=== PATIENT | female | born 1930 | race Two or more races ===

== ENCOUNTER 2017-12-12 15:40 | Emergency (ER) | payer MEDICARE, OTHER ==
[2016-01-21 15:12] VITALS: BP 126/67
[~2017-12-12] VITALS: Ht 157.5 cm; Wt 70.8 kg
[~2017-12-12 15:40] MED LIST: CELE100C PO; CELE200C PO; EYE; OMEP20CA9 PO; TRAM50TA PO
--- NOTE | 2017-12-12 16:48 | PHYS DOC ---
Past Medical History Past Medical History: Arthritis Additional Past Medical Histor: SCOLIOSIS Past Surgical History: Other Additional Past Surgical Histo: BILATERAL CATARACT Smoking: Cigarettes (The patient is a nonsmoker.) Alcohol Use: None Drug Use: None Adult General Chief Complaint Chief Complaint: LOWER EXT PAIN HPI HPI Patient is an 87-year-old female who presents to the emergency department for evaluation. She states that for the past month or so, she has had some lower extremity discomfort, primarily in the her legs, left greater than right. Over the past few weeks she has developed some mild edema to her legs, possibly left greater than right. She denies any other pain. She denies any shortness of breath, chest pain, pleuritic pain, numbness, or weakness. She denies any lower abdominal or back pain. She has not had a definite injuries. She is able to ambulate without significant difficulty. She has had a history of pain from arthritis and had been on tramadol with her primary care provider had taken at a rate. She has been using some Motrin as needed for pain. Palpation of the affected areas worsen her pain. There are no alleviating factors to her symptoms. Review of Systems Review of Systems Constitutional: Denies fever or chills [] Eyes: Denies change in visual acuity, redness, or eye pain [] HENT: Denies nasal congestion or sore throat [] Respiratory: Denies cough or shortness of breath [] Cardiovascular: The patient denies any shortness of breath, chest pain, palpitations, or orthopnea [] GI: Denies abdominal pain, nausea, vomiting, bloody stools or diarrhea [] : Denies dysuria or hematuria [] Musculoskeletal: Denies back pain or joint pain [] Integument: Denies rash or skin lesions [] Neurologic: Denies headache, focal weakness or sensory changes [] Endocrine: Denies polyuria or polydipsia [] All other systems were reviewed and found to be within normal limits, except as documented in this note. Allergies Allergies Allergies Coded Allergies Type Severity Reaction Last Updated Verified Penicillins Allergy Severe Anaphylaxis 01/20/16 Yes Physical Exam Physical Exam PHYSICAL EXAM: CONSTITUTIONAL: Well developed, well nourished HEAD: normocephalic, atraumatic EENT: PERRL, EOMI. Conjunctivae normal color, sclerae non-icteric; moist mucous membranes. NECK: Supple, non-tender; no meningismus. LUNGS: Lungs CTA, breathing even and unlabored. Normal air movement. HEART: Regular rate and rhythm, no murmur CHEST: No deformity; non-tender ABDOMEN: The abdomen is soft, and non-tender, no masses or bruits. EXTREM: Normal ROM; no deformity, mild bilateral calf tenderness, left greater than right. There are no palpable masses. Normal pulses palpable in all extremities, including strong bilateral dorsalis pedis pulses. There are no skin discolorations or rashes noted. There is trace bilateral pedal edema. SKIN: No rash; no diaphoresis NEURO: Alert; normal speech and cognition; CN's grossly intact; strength grossly intact without focal deficit. BACK: No CVA TTP. Current Patient Data Vital Signs Vital Signs Date Time Temp Pulse Resp B/P (MAP) Pulse Ox O2 Delivery O2 Flow Rate FiO2 12/12/17 16:21 98.1 88 16 151/73 (99) 95 Room Air 98.1 Lab Values Laboratory Tests Test 12/12/17 16:40 12/12/17 17:29 White Blood Count 10.5 x10^3/uL (4.0-11.0) Red Blood Count 3.91 x10^6/uL (3.50-5.40) Hemoglobin 11.6 g/dL (12.0-15.5) L Hematocrit 35.5 % (36.0-47.0) L Mean Corpuscular Volume 91 fL (79-100) Mean Corpuscular Hemoglobin 30 pg (25-35) Mean Corpuscular Hemoglobin Concent 33 g/dL (31-37) Red Cell Distribution Width 15.1 % (11.5-14.5) H Platelet Count 485 x10^3/uL (140-400) H Neutrophils (%) (Auto) 70 % (31-73) Lymphocytes (%) (Auto) 20 % (24-48) L Monocytes (%) (Auto) 7 % (0-9) Eosinophils (%) (Auto) 1 % (0-3) Basophils (%) (Auto) 1 % (0-3) Neutrophils # (Auto) 7.4 x10^3uL (1.8-7.7) Lymphocytes # (Auto) 2.1 x10^3/uL (1.0-4.8) Monocytes # (Auto) 0.8 x10^3/uL (0.0-1.1) Eosinophils # (Auto) 0.1 x10^3/uL (0.0-0.7) Basophils # (Auto) 0.1 x10^3/uL (0.0-0.2) Erythrocyte Sedimentation Rate 101 (0-25) H Sodium Level 138 mmol/L (136-145) Potassium Level 3.7 mmol/L (3.5-5.1) Chloride Level 103 mmol/L (98-107) Carbon Dioxide Level 28 mmol/L (21-32) Anion Gap 7 (6-14) Blood Urea Nitrogen 25 mg/dL (7-20) H Creatinine 0.5 mg/dL (0.6-1.0) L Estimated GFR (Cockcroft-Gault) 116.2 BUN/Creatinine Ratio 50 (6-20) H Glucose Level 104 mg/dL (70-99) H Calcium Level 9.0 mg/dL (8.5-10.1) Magnesium Level 2.1 mg/dL (1.8-2.4) Total Bilirubin 0.3 mg/dL (0.2-1.0) Aspartate Amino Transferase (AST) 19 U/L (15-37) Alanine Aminotransferase (ALT) 14 U/L (14-59) Alkaline Phosphatase 80 U/L (46-116) Creatine Kinase 33 U/L (26-192) Creatine Kinase MB (Mass) 0.5 ng/mL (0.0-3.6) Creatine Kinase MB Relative Index % (0-4) Troponin I Quantitative < 0.017 ng/mL (0.000-0.055) C-Reactive Protein, Quantitative 65.0 mg/L (0-3.3) H QW-Wxp-[id number]-Type Natriuretic Peptide 229 pg/mL (0-449) Total Protein 7.3 g/dL (6.4-8.2) Albumin 2.7 g/dL (3.4-5.0) L Albumin/Globulin Ratio 0.6 (1.0-1.7) L Laboratory Tests 12/12/17 16:40 Laboratory Tests 12/12/17 17:29 EKG EKG [Normal sinus rhythm at a rate of 85 beats for minute, left axis deviation, probable ] left anterior fascicular block, without acute ischemic ST/T changes. Nonspecific changes are present. There are no old EKGs available for comparison. Radiology/Procedures Radiology/Procedures [PROCEDURE: VENOUS LOWER EXT BILATERAL Bilateral Lower Extremity Venous Doppler Ultrasound History: Lower extremity edema Comparison: None Procedure: Color flow, duplex, spectral analysis and 2D images are obtained with and without compression in the area of the common femoral vein, superficial femoral vein - femoral vein junction, main femoral vein (superficial femoral vein) and popliteal vein. Veins of the proximal calf are also imaged. Findings: There is normal duplex flow, color flow and compressibility of all visualized vein segments. No evidence of deep venous thrombus is present. There is a Bliss's cyst the left popliteal fossa that measures 4.8 x 1.4 x 3.5 cm. Impression: No evidence of DVT.] ER physician preliminary chest x-ray interpretation: Probable hiatal hernia without other acute disease. Course & Med Decision Making Course & Med Decision Making Pertinent Labs and Imaging studies reviewed. (See chart for details) [6:50 PM: The patient's condition remained stable. I am suspicious that she has an oral inflammatory myositis/myalgia, possibly polymyalgia rheumatica, she has been having chronic shoulder pain and has received steroid injections from an orthopedic surgeon with minimal improvement. I do believe she warrants an outpatient immunological workup and she'll be referred to rheumatology. I did discuss this with the patient and her daughter, who is fluent in Monegasque, the importance of close follow-up and return precautions. She'll be prescribed a course of steroids.] Her urinalysis is currently pending and if negative she'll be discharged. Dragon Disclaimer Dragon Disclaimer This electronic medical record was generated, in whole or in part, using a voice recognition dictation system. Departure Departure Impression: Primary Impression: Myalgia Disposition: HOME, SELF-CARE Condition: STABLE Referrals: ABHI COOL MD Patient Instructions: Myalgia, Adult, Polymyalgia Rheumatica Scripts Methylprednisolone (MEDROL) 4 Mg Tab.ds.pk 1 PKG PO UD, #1 PKG Prov: IRAIS ARMENTA MD 12/12/17 IRAIS ARMENTA MD Dec 12, 2017 16:48
[2017-12-12 17:01] LABS: BASO # 0.1 x10^3/uL (0.0-0.2); BASO % 1 % (0-3); EOS # 0.1 x10^3/uL (0.0-0.7); EOS % 1 % (0-3); HEMATOCRIT 35.5 % (36.0-47.0); HEMOGLOBIN 11.6 g/dL (12.0-15.5); LYMPH # 2.1 x10^3/uL (1.0-4.8); LYMPH % 20 % (24-48); MEAN CORPUSCULAR HEMOGLOBIN 30 pg (25-35); MEAN CORPUSCULAR HGB CONC 33 g/dL (31-37); MEAN CORPUSCULAR VOLUME 91 fL (79-100); MONO # 0.8 x10^3/uL (0.0-1.1); MONO % 7 % (0-9); NEUT # 7.4 x10^3uL (1.8-7.7); NEUT % 70 % (31-73); PLATELET COUNT 485 x10^3/uL (140-400); RED BLOOD COUNT 3.91 x10^6/uL (3.50-5.40); RED CELL DISTRIBUTION WIDTH 15.1 % (11.5-14.5); WHITE BLOOD COUNT 10.5 x10^3/uL (4.0-11.0)
[2017-12-12 17:49] LABS: CREATININE 0.5 mg/dL (0.6-1.0); GFR 116.2; POTASSIUM 3.7 mmol/L (3.5-5.1)
[2017-12-12 17:55] LABS: ALBUMIN 2.7 g/dL (3.4-5.0); ALBUMIN/GLOBULIN RATIO 0.6 (1.0-1.7); MAGNESIUM 2.1 mg/dL (1.8-2.4); TOTAL BILIRUBIN 0.3 mg/dL (0.2-1.0); TOTAL PROTEIN 7.3 g/dL (6.4-8.2)
--- NOTE | 2017-12-12 18:00 | RAD ---
Bilateral Lower Extremity Venous Doppler Ultrasound History: Lower extremity edema Comparison: None Procedure: Color flow, duplex, spectral analysis and 2D images are obtained with and without compression in the area of the common femoral vein, superficial femoral vein - femoral vein junction, main femoral vein (superficial femoral vein) and popliteal vein. Veins of the proximal calf are also imaged. Findings: There is normal duplex flow, color flow and compressibility of all visualized vein segments. No evidence of deep venous thrombus is present. There is a Bliss's cyst the left popliteal fossa that measures 4.8 x 1.4 x 3.5 cm. Impression: No evidence of DVT. Electronically signed by: Darian Landa III, MD (12/12/2017 5:57 PM) [facility]
[2017-12-12 18:03] LABS: CREATINE KINASE 33 U/L (26-192)
--- NOTE | 2017-12-12 18:19 | EKG ---
[facility] [address] [place] [address] Test Date: 2017-12-12 Test Time: 16:35:34 Pat Name: JOHN POLK Department: Room: Gender: F Vascular Physician: : [id number] Requested By: IRAIS ARMENTA Order Number: [id number] Reading MD: Prem Diaz MD Measurements Intervals [place] Rate: 85 P: 29 ME: 146 QRS: -24 QRSD: 108 T: 26 QT: 376 QTc: 448 Interpretive Statements SINUS RHYTHM NON-SPECIFIC ST/T CHANGES Electronically Signed On 12-15-2017 15:16:52 CDT by Prem Diaz MD
[2017-12-12] MEDS ORDERED: METH4TAB2 PO (18:52)
[2017-12-12 18:58] LABS: BILIRUBIN,URINE SMALL (NEG); CLARITY,URINE CLEAR; COLOR,URINE YELLOW; NITRITE,URINE NEGATIVE (NEG); PROTEIN,URINE NEGATIVE (NEG-TRACE)
[2017-12-12 19:04] LABS: BACTERIA,URINE FEW /HPF (0-FEW); RBC,URINE 0 /HPF (0-2); SQUAMOUS EPITHELIAL CELL,UR MOD /LPF
--- NOTE | 2017-12-13 08:04 | RAD ---
EXAM: Portable AP view of the chest DATE: 12/12/2017 4:41 PM INDICATION: s/p pedal edema, also pt states legs swelling below knee joint. 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 The heart is not enlarged. Mediastinal and hilar contours are normal. Retrocardiac opacity, likely hiatal hernia. No focal parenchymal airspace opacity. No pleural effusion or pneumothorax. IMPRESSION: 1. No radiographic evidence for acute cardiopulmonary process. Electronically signed by: Carlos Messina MD (12/13/2017 8:00 AM) [facility]
== END 2017-12-12 19:17 | disposition home or self-care (01) ==
LOC: ER 15:40
DX: M79.1 Myalgia (principal); R60.0 Localized edema; M19.90 Unspecified osteoarthritis, unspecified site; Z88.0 Allergy status to penicillin
CPT/HCPCS: 36415; 71045; 80053; 81001; 82553; 83735; 83880; 84484; 85025; 85651; 86140; 87086; 93005; 93970; 99285-25